=== PATIENT | female | born 1950 | race Caucasian/White ===

== ENCOUNTER → 2017-01-28 | Outpatient (CLI) | payer OTHER ==
[~2017-01-28] VITALS: Ht 170.2 cm; Wt 106.5 kg
[~2017-01-28] MED LIST: ANTI-DIARRHEAL2 M2 PO; ANTIVERT25 MG PO; ASPIRIN81 M2 PO; AVENTYL,PAMELOR10 M1 PO; Antivert PO; BACTRIM,SEPT1 TABLET PO; BONINE25 MG PO; CALTRATE 6001 TABLE1 PO; CARDIZEM CD360 MG PO; CELEBREX200 MG PO; CELECOXIB200 MG PO; COLACE100 MG PO; COREG3.125 M1 PO; COUMADIN,JANTOVE1 MG PO; CYMBALTA60 MG PO; Cardizem CD,Cartia X PO; Cymbalta PO; DAILY VALUE1 EACH PO; DIAZEPAM5 MG PO; DILTIAZEM 24HR360 M1 PO; DULCOLAX10 MG PR; DULOXETINE HCL60 MG PO; DURAGESIC25 MCG TD; ELIQUIS5 MG PO; ENDOCET 5-3251 EACH PO; FEOSOL325 MG PO; FLORASTOR250 MG PO; GLUCOPHAGE XR750 MG PO; GLUCOPHAGE500 MG PO; GLYNASE3 MG PO; HYDROCODON-ACE1 EAC7 PO; K-DUR10 MEQ PO; KLONOPIN0.5 M1 PO; LANTUS 3 M100 UNITS1 SC; LIDOCAINE700 MG TD; LIDODERM 5% P1 PATCH TD; LIDODERM 5% P1 PATCH TP; LISINOPRIL-HCT1 EAC3 PO; LOTRISONE15 GM TP; Lantus 3 ml Solostar SC; Lasix PO; MECLIZINE HCL25 MG PO; MELATIN3 MG PO; MELATONIN3 MG PO; MELOXICAM15 MG PO; METAXALONE800 MG PO; METFORMIN HCL1000 MG PO; METFORMIN HCL500 MG PO; MILK OF MAGN PO; Melatonin PO; NOVOLOG 10100 UNITS/ SC; OMEPRAZOLE20 MG PO; ONDANSETRON HCL4 MG PO; OXYCONTIN10 MG PO; PAIN & FEVER500 MG PO; PERCOCET 5/31 TABLET PO; PRAVACHOL20 MG PO; PRAVASTATIN SOD20 MG PO; PRILOSEC40 MG PO; PROAIR HFA8.5 GM IH; PROSOURCE LIQUI30 ML PO; ROXICODONE5 MG PO; SENOKOT S,PE1 TABLET PO; SKELAXIN800 MG PO; SPIRIVA1 INHALATI IH; ST. JOSEPH ASPI81 MG PO; Skelaxin PO; TRAMADOL HCL50 MG PO; Tylenol Regular Stre PO; VALIUM5 MG PO; VENTOLIN HFA18 GM IH; WARFARIN SODIU2.5 MG PO; ZESTRIL2.5 MG PO; ZOFRAN4 MG PO; Zestoretic,Prinzide PO; Zocor PO
[2017-01-28 09:14] LABS: HEMATOCRIT 32.9 % (36.0-46.0); MCH 26.3 PG (29.0-34.0); MCHC 30.1 G/DL (30.0-36.0); MCV 87.5 FL (83-99); MEAN PLAT.VOLUME 12.4 uM^3 (9.5-12.4); PLATELET COUNT 182 K/uL (156-360); RBC DIS.WIDTH-CV 16.1 % (11.8-14.6); RBC DIS.WIDTH-SD 50.6 % (39-53); RED BLOOD COUNT 3.76 M/uL (3.80-5.20); WHITE BLOOD COUNT 5.4 K/uL (4.1-10.2)
[2017-01-28 09:28] LABS: INTER. NORMALIZED RATIO 1.1; PROTHROMBIN TIME 11.9 SEC (10.2-12.9)
[2017-01-28 09:31] LABS: PTT 25.3 SEC (25-37)
[2017-01-28 09:52] LABS: POINT-OF-CARE METER ID UU13113694
== END | disposition home or self-care (01) ==
LOC: OPR 08:30 → EDSTATUS 09:00
PROVIDERS: Internal Medicine Pulmonary Disease
PROC: 0BBK3ZX Excision of Right Lung, Percutaneous Approach, Diagnostic (ICD-10-PCS; principal; 2017-01-28)
DX: C34.31 Malignant neoplasm of lower lobe, right bronchus or lung (principal); J44.9 Chronic obstructive pulmonary disease, unspecified; F17.200 Nicotine dependence, unspecified, uncomplicated; I48.91 Unspecified atrial fibrillation; K21.9 Gastro-esophageal reflux disease without esophagitis; Z79.84 Long term (current) use of oral hypoglycemic drugs; Z79.01 Long term (current) use of anticoagulants; Z82.49 Family history of ischemic heart disease and other diseases of the circulatory system; Z82.0 Family history of epilepsy and other diseases of the nervous system; Z83.3 Family history of diabetes mellitus; Z90.49 Acquired absence of other specified parts of digestive tract; Z90.710 Acquired absence of both cervix and uterus; Z96.659 Presence of unspecified artificial knee joint; Z88.2 Allergy status to sulfonamides; Z88.8 Allergy status to other drugs, medicaments and biological substances
CPT/HCPCS: 71010; 77012; 82948; 85027; 85610; 85730; 88305; 88341 TC; 88342 TC; J3010

== ENCOUNTER 2017-02-20 10:32 | Day surgery (SDC) | payer OTHER ==
[~2017-02-20] VITALS: Ht 177.8 cm; Wt 106.0 kg
[2017-02-20 11:08] LABS: EOSINOPHIL (%) 3.1 % (0-5); EOSINOPHIL COUNT 0.2 K/uL (0-0.3); HEMATOCRIT 33.9 % (36.0-46.0); IMMATURE GRANULOCYTE (%) 0.3 % (0.0-0.7); INSTRUMENT ABS NEUTROPHIL CT 3.8 K/uL; LYMPHOCYTE COUNT 1.9 K/uL (1.0-2.8); MCH 25.3 PG (29.0-34.0); MCHC 29.2 G/DL (30.0-36.0); MCV 86.7 FL (83-99); MEAN PLAT.VOLUME 12.7 uM^3 (9.5-12.4); MONOCYTE (%) 6.5 % (3-12); MONOCYTE COUNT 0.4 K/uL (0-0.8); NEUTROPHIL (%) 59.7 % (45-76); NEUTROPHIL COUNT 3.8 K/uL (1.8-6.4); RBC DIS.WIDTH-CV 15.9 % (11.8-14.6); RBC DIS.WIDTH-SD 50.1 % (39-53); RED BLOOD COUNT 3.91 M/uL (3.80-5.20); WHITE BLOOD COUNT 6.4 K/uL (4.1-10.2)
[2017-02-20 11:10] LABS: PLATELET COUNT 237 K/uL (156-360)
[2017-02-20 11:11] LABS: INTER. NORMALIZED RATIO 1.1; PROTHROMBIN TIME 12.2 SEC (10.2-12.9)
[2017-02-20 11:14] LABS: CHLORIDE 107 mEq/L (99-109); PTT 27.4 SEC (25-37); SODIUM 141 mEq/L (136-147)
[2017-02-20 11:16] LABS: GLUCOSE 232 mg/dL (70-99)
[2017-02-20 11:17] LABS: ANION GAP 10 MEQ/L (2-14)
[2017-02-20 11:18] LABS: TOTAL BILIRUBIN 0.3 mg/dL (0.0-1.0)
[2017-02-20 11:20] LABS: ALKALINE PHOSPHATASE 73 IU/L (3-129); GFR ESTIMATE (CALCULATED) > 59 mL/min/
[2017-02-20 11:21] LABS: UREA NITROGEN (BUN) 9 mg/dL (9-23)
[2017-02-20 11:29] VITALS: BP 128/69
[2017-02-20 14:36] LABS: POINT-OF-CARE METER ID UU13113675
[2017-02-20] MEDS ORDERED: COLACE100 MG PO (15:07)
[2017-02-20] MEDS ORDERED: HYDROCODON-ACE1 EAC7 PO (15:07)
[2017-02-20 15:45] VITALS: BP 150/69
[2017-02-20 16:51] VITALS: BP 144/64
== END 2017-02-20 17:00 | disposition home or self-care (01) ==
LOC: SDC 10:32
PROVIDERS: Thoracic Surgery (Cardiothoracic Vascular Surgery)
PROC: 07B74ZX Excision of Thorax Lymphatic, Percutaneous Endoscopic Approach, Diagnostic (ICD-10-PCS; principal; 2017-02-20)
DX: C34.90 Malignant neoplasm of unspecified part of unspecified bronchus or lung (principal); K21.9 Gastro-esophageal reflux disease without esophagitis; E66.9 Obesity, unspecified; Z68.36 Body mass index [BMI] 36.0-36.9, adult; J44.9 Chronic obstructive pulmonary disease, unspecified; I10 Essential (primary) hypertension; E11.9 Type 2 diabetes mellitus without complications; I48.91 Unspecified atrial fibrillation; F17.210 Nicotine dependence, cigarettes, uncomplicated; Z88.2 Allergy status to sulfonamides
CPT/HCPCS: 80053; 82948; 85025; 85610; 85730; 86850; 86900; 86901; 88305; J0330; J0690; J1100; J1170; J2250; J2405; J3010

== ENCOUNTER 2017-03-05 20:53 | Inpatient (IN) | payer OTHER ==
[~2017-03-05] VITALS: Ht 401.3 cm; Wt 108.8 kg
[~2017-03-05 20:53] MED LIST changes: +METFORMIN HCL1000 M3 PO; +PROBIOTIC1 EAC4 PO
[2017-03-06 06:20] VITALS: BP 156/69
[2017-03-06 06:25] LABS: EOSINOPHIL (%) 1.2 % (0-5); EOSINOPHIL COUNT 0.1 K/uL (0-0.3); HEMATOCRIT 33.6 % (36.0-46.0); IMMATURE GRANULOCYTE (%) 0.3 % (0.0-0.7); INSTRUMENT ABS NEUTROPHIL CT 4.9 K/uL; LYMPHOCYTE COUNT 1.2 K/uL (1.0-2.8); MCH 24.2 PG (29.0-34.0); MCHC 28.3 G/DL (30.0-36.0); MCV 85.7 FL (83-99); MEAN PLAT.VOLUME 12.6 uM^3 (9.5-12.4); MONOCYTE (%) 6.6 % (3-12); MONOCYTE COUNT 0.4 K/uL (0-0.8); NEUTROPHIL (%) 72.9 % (45-76); NEUTROPHIL COUNT 4.9 K/uL (1.8-6.4); PLATELET COUNT 227 K/uL (156-360); RBC DIS.WIDTH-CV 15.9 % (11.8-14.6); RBC DIS.WIDTH-SD 49.7 % (39-53); RED BLOOD COUNT 3.92 M/uL (3.80-5.20); WHITE BLOOD COUNT 6.7 K/uL (4.1-10.2)
[2017-03-06 06:31] LABS: INTER. NORMALIZED RATIO 1.2
[2017-03-06 06:55] LABS: ALKALINE PHOSPHATASE 65 IU/L (3-129); ANION GAP 13 MEQ/L (2-14); CHLORIDE 105 MEQ/L (99-109); GFR ESTIMATE (CALCULATED) > 59 mL/min/; GLUCOSE 211 mg/dL (70-99); POTASSIUM 3.1 MEQ/L (3.7-5.4); SAMPLE HEMOLYSIS CHECK 0; SAMPLE ICTERIC CHECK 0; SAMPLE LIPEMIA CHECK 0; SODIUM 142 MEQ/L (136-147); TOTAL BILIRUBIN 0.4 MG/DL (0.0-1.0); UREA NITROGEN (BUN) 11 mg/dL (9-23)
[2017-03-06 10:58] LABS: POINT-OF-CARE METER ID UU13113675
[2017-03-06 16:03] LABS: POINT-OF-CARE METER ID UU13113675
[2017-03-06 16:30] VITALS: BP 106/49
[2017-03-06 16:31] VITALS: BP 106/49
[2017-03-06 17:00] VITALS: BP 124/54
[2017-03-06 17:41] LABS: METH RESISTANT S AUREUS PCR NEGATIVE (NEGATIVE)
[2017-03-06 18:00] VITALS: BP 107/79
[2017-03-06 18:04] LABS: SPECIMEN PROCESSING CONTROL PASS
[2017-03-06 18:05] LABS: PROBE CHECK PASS
[2017-03-06 18:10] LABS: POINT-OF-CARE METER ID UU14208751
[2017-03-06 20:00] VITALS: BP 118/64
[2017-03-06 22:09] LABS: POINT-OF-CARE METER ID UU14314083
[2017-03-07] VITALS (16 sets, daily range): BP systolic 93–161; BP diastolic 50–87
[2017-03-07 07:16] LABS: HEMATOCRIT 29.4 % (36.0-46.0); MCH 25.9 PG (29.0-34.0); MCHC 29.3 G/DL (30.0-36.0); MCV 88.6 FL (83-99); MEAN PLAT.VOLUME 12.9 uM^3 (9.5-12.4); PLATELET COUNT 207 K/uL (156-360); RBC DIS.WIDTH-CV 16.1 % (11.8-14.6); RBC DIS.WIDTH-SD 52.2 % (39-53); RED BLOOD COUNT 3.32 M/uL (3.80-5.20); WHITE BLOOD COUNT 10.2 K/uL (4.1-10.2)
[2017-03-07 07:39] LABS: ANION GAP 8 MEQ/L (2-14); CHLORIDE 105 MEQ/L (99-109); GFR ESTIMATE (CALCULATED) > 59 mL/min/; GLUCOSE 163 mg/dL (70-99); SAMPLE HEMOLYSIS CHECK 0; SAMPLE ICTERIC CHECK 0; SAMPLE LIPEMIA CHECK 0; SODIUM 139 MEQ/L (136-147); UREA NITROGEN (BUN) 13 mg/dL (9-23)
[2017-03-07 07:42] LABS: POTASSIUM 3.8 MEQ/L (3.7-5.4)
[2017-03-07 08:55] LABS: POINT-OF-CARE METER ID UU14162636
[2017-03-07 12:05] LABS: POINT-OF-CARE METER ID UU14174217
[2017-03-07 17:33] LABS: POINT-OF-CARE METER ID UU14162636
[2017-03-07 22:45] LABS: POINT-OF-CARE METER ID UU14162636
[2017-03-08] VITALS (14 sets, daily range): BP systolic 88–164; BP diastolic 33–77
[2017-03-08 05:18] LABS: MCH 24.9 PG (29.0-34.0); MCHC 28.5 G/DL (30.0-36.0); MCV 87.5 FL (83-99); MEAN PLAT.VOLUME 12.7 uM^3 (9.5-12.4); PLATELET COUNT 185 K/uL (156-360); RBC DIS.WIDTH-CV 16.2 % (11.8-14.6); RBC DIS.WIDTH-SD 51.6 % (39-53); RED BLOOD COUNT 2.97 M/uL (3.80-5.20); WHITE BLOOD COUNT 8.3 K/uL (4.1-10.2)
[2017-03-08 05:45] LABS: ANION GAP 7 MEQ/L (2-14); CHLORIDE 105 MEQ/L (99-109); GFR ESTIMATE (CALCULATED) > 59 mL/min/; GLUCOSE 133 mg/dL (70-99); POTASSIUM 3.4 MEQ/L (3.7-5.4); SAMPLE HEMOLYSIS CHECK 0; SAMPLE ICTERIC CHECK 0; SAMPLE LIPEMIA CHECK 0; SODIUM 140 MEQ/L (136-147); UREA NITROGEN (BUN) 14 mg/dL (9-23)
[2017-03-08 12:30] LABS: POINT-OF-CARE METER ID UU13113803
[2017-03-08 16:05] LABS: POINT-OF-CARE METER ID UU13113803
[2017-03-08 22:26] LABS: POINT-OF-CARE METER ID UU14314082; POINT-OF-CARE USER ID RADDRS44
[2017-03-09] VITALS (19 sets, daily range): BP systolic 113–178; BP diastolic 62–105
[2017-03-09 05:31] LABS: HEMATOCRIT 28.2 % (36.0-46.0); MCH 24.7 PG (29.0-34.0); MCV 88.1 FL (83-99); MEAN PLAT.VOLUME 12.8 uM^3 (9.5-12.4); PLATELET COUNT 207 K/uL (156-360); RBC DIS.WIDTH-SD 51.6 % (39-53); WHITE BLOOD COUNT 7.8 K/uL (4.1-10.2)
[2017-03-09 06:00] LABS: ANION GAP 7 MEQ/L (2-14); CHLORIDE 104 MEQ/L (99-109); GFR ESTIMATE (CALCULATED) > 59 mL/min/; GLUCOSE 138 mg/dL (70-99); MAGNESIUM 1.5 mg/dl (1.3-2.7); POTASSIUM 3.7 MEQ/L (3.7-5.4); SAMPLE HEMOLYSIS CHECK 0; SAMPLE ICTERIC CHECK 0; SAMPLE LIPEMIA CHECK 0; SODIUM 139 MEQ/L (136-147); UREA NITROGEN (BUN) 12 mg/dL (9-23)
[2017-03-09 08:28] LABS: POINT-OF-CARE METER ID UU14174217
[2017-03-09 12:42] LABS: POINT-OF-CARE METER ID UU14174217
[2017-03-09 17:44] LABS: POINT-OF-CARE METER ID UU14208751
[2017-03-09 23:04] LABS: POINT-OF-CARE METER ID UU14174217; POINT-OF-CARE USER ID RADDRS44
[2017-03-10] VITALS (11 sets, daily range): BP systolic 129–178; BP diastolic 55–80
[2017-03-10 05:04] LABS: HEMATOCRIT 26.3 % (36.0-46.0); MCH 25.9 PG (29.0-34.0); MCHC 29.3 G/DL (30.0-36.0); MCV 88.6 FL (83-99); MEAN PLAT.VOLUME 12.8 uM^3 (9.5-12.4); PLATELET COUNT 188 K/uL (156-360); RBC DIS.WIDTH-CV 16.3 % (11.8-14.6); RBC DIS.WIDTH-SD 51.8 % (39-53); RED BLOOD COUNT 2.97 M/uL (3.80-5.20); WHITE BLOOD COUNT 6.5 K/uL (4.1-10.2)
[2017-03-10 05:37] LABS: ANION GAP 6 MEQ/L (2-14); CHLORIDE 106 MEQ/L (99-109); GFR ESTIMATE (CALCULATED) > 59 mL/min/; GLUCOSE 125 mg/dL (70-99); MAGNESIUM 1.3 mg/dl (1.3-2.7); POTASSIUM 4.4 MEQ/L (3.7-5.4); SAMPLE HEMOLYSIS CHECK 0; SAMPLE ICTERIC CHECK 0; SAMPLE LIPEMIA CHECK 0; SODIUM 140 MEQ/L (136-147); UREA NITROGEN (BUN) 12 mg/dL (9-23)
[2017-03-10 08:55] LABS: POINT-OF-CARE METER ID UU14314082
[2017-03-10 11:36] LABS: POINT-OF-CARE METER ID UU14314082
[2017-03-10 16:44] LABS: POINT-OF-CARE METER ID UU14314082
[2017-03-10 21:54] LABS: POINT-OF-CARE METER ID UU14314082
[2017-03-11] VITALS (8 sets, daily range): BP systolic 136–200; BP diastolic 59–99
[2017-03-11 08:31] LABS: POINT-OF-CARE METER ID UU13113803
[2017-03-11 11:12] LABS: ADD MIUA? YES; BILIRUBIN NEGATIVE; BLOOD NEGATIVE; COLOR YELLOW ((YELLOW)); GLUCOSE (STRIP) NEGATIVE; KETONES 5; LEUKOCYTES TRACE; NITRITE NEGATIVE; PROTEIN (STRIP) NEGATIVE; UROBILINOGEN 0.2 MG/DL (0.2-1.0)
[2017-03-11 11:48] LABS: BACTERIA RARE /HPF; EPITHELIAL CELLS RARE /HPF; MUCUS TRACE /LPF; RED BLOOD CELLS 0-5 /HPF (0-5)
[2017-03-11 11:51] LABS: POINT-OF-CARE METER ID UU13113803
[2017-03-11 16:55] LABS: POINT-OF-CARE METER ID UU13113803
[2017-03-11 22:04] LABS: POINT-OF-CARE METER ID UU13113803
[2017-03-12] VITALS: BP 154/58
[2017-03-12 04:00] VITALS: BP 175/67
[2017-03-12 08:00] VITALS: BP 174/78
[2017-03-12 09:34] LABS: POINT-OF-CARE METER ID UU14314082
[2017-03-12 12:00] VITALS: BP 157/75
[2017-03-12 12:22] LABS: POINT-OF-CARE METER ID UU13113803
[2017-03-12 16:00] VITALS: BP 171/83
[2017-03-12 16:53] LABS: POINT-OF-CARE METER ID UU13113803
[2017-03-12] MEDS ORDERED: FERROUS SULFAT325 MG PO (18:40)
[2017-03-12] MEDS ORDERED: THERAGRAN1 TABLET PO (18:40)
[2017-03-12] MEDS ORDERED: FOLIC ACID1 MG PO (18:40)
[2017-03-12] MEDS ORDERED: DIGOXIN125 MCG PO (18:40)
[2017-03-12] MEDS ORDERED: ADVAIR HFA120 INHALA IH (18:40)
[2017-03-12] MEDS ORDERED: CIPROFLOXACIN500 M1 PO (18:40)
[2017-03-12 20:00] VITALS: BP 159/83
[2017-03-12 21:48] LABS: POINT-OF-CARE METER ID UU14314082
[2017-03-13] VITALS: BP 145/99
[2017-03-13 04:00] VITALS: BP 154/68
[2017-03-13 06:06] LABS: HEMATOCRIT 29.7 % (36.0-46.0); MCH 24.9 PG (29.0-34.0); MCHC 27.9 G/DL (30.0-36.0); MCV 88.9 FL (83-99); MEAN PLAT.VOLUME 12.5 uM^3 (9.5-12.4); PLATELET COUNT 225 K/uL (156-360); RBC DIS.WIDTH-CV 17.8 % (11.8-14.6); RBC DIS.WIDTH-SD 54.8 % (39-53); RED BLOOD COUNT 3.34 M/uL (3.80-5.20); WHITE BLOOD COUNT 7.1 K/uL (4.1-10.2)
[2017-03-13 06:23] LABS: ANION GAP 9 MEQ/L (2-14); CHLORIDE 106 MEQ/L (99-109); GFR ESTIMATE (CALCULATED) > 59 mL/min/; GLUCOSE 97 mg/dL (70-99); POTASSIUM 3.8 MEQ/L (3.7-5.4); SAMPLE HEMOLYSIS CHECK 0; SAMPLE ICTERIC CHECK 0; SAMPLE LIPEMIA CHECK 0; SODIUM 143 MEQ/L (136-147); UREA NITROGEN (BUN) 6 mg/dL (9-23)
[2017-03-13 08:00] VITALS: BP 164/73
[2017-03-13 08:17] LABS: POINT-OF-CARE METER ID UU14314082
[2017-03-13 12:00] VITALS: BP 147/59
[2017-03-13 12:47] LABS: POINT-OF-CARE METER ID UU14314082
[2017-03-13 16:00] VITALS: BP 152/61
[2017-03-13 17:43] LABS: POINT-OF-CARE METER ID UU14314082
== END 2017-03-13 18:50 | disposition home or self-care (01) | DRG 164 ==
LOC: ENRESERV 20:53 → 2SOUTH 03-06 05:22 → 4WEST 03-06 05:22 → ENRESERV 03-06 08:15 → CANRESERV 03-06 08:15 → 2SOUTH 03-06 09:11 → SDC 03-06 15:01 → EDSTATUS 03-06 15:02 → 2SOUTH 03-06 15:02 → ENRESERV 03-06 15:40 → 4WEST 03-06 16:04
PROVIDERS: Surgery; Thoracic Surgery (Cardiothoracic Vascular Surgery)
DX: C34.31 Malignant neoplasm of lower lobe, right bronchus or lung (principal); R91.1 Solitary pulmonary nodule; F17.210 Nicotine dependence, cigarettes, uncomplicated; D62 Acute posthemorrhagic anemia; E11.9 Type 2 diabetes mellitus without complications; M19.90 Unspecified osteoarthritis, unspecified site; I10 Essential (primary) hypertension; E87.6 Hypokalemia; I25.10 Atherosclerotic heart disease of native coronary artery without angina pectoris; K55.1 Chronic vascular disorders of intestine; I48.0 Paroxysmal atrial fibrillation; Z98.84 Bariatric surgery status; Z88.2 Allergy status to sulfonamides; K21.9 Gastro-esophageal reflux disease without esophagitis; N39.0 Urinary tract infection, site not specified; J44.9 Chronic obstructive pulmonary disease, unspecified
CPT/HCPCS: 71010; 71020; 80048; 80053; 81003; 82948; 83735; 84100; 85025; 85027; 85610; 86850; 86900; 86901; 86920; 87077; 87086; 87186; 87641; 88300; 88309; 94010; 94640; 94640 76; 94760; 94799; 97530 GO; 97530 GP; 99202; J0131; J0330; J0690; J1100; J1160; J1170; J1200; J1644; J1650; J1815; J1885; J2250; J2370; J2405; J2710; J3010; J3420; J7050; J7120; S0020

== ENCOUNTER 2017-03-21 12:08 | Inpatient (IN) | payer OTHER ==
[~2017-03-21] VITALS: Ht 177.8 cm; Wt 103.0 kg
[~2017-03-21 12:08] MED LIST changes: +ADVAIR HFA120 INHALA IH; +CIPROFLOXACIN500 M1 PO; +DIGOXIN125 MCG PO; +FERROUS SULFAT325 MG PO; +FOLIC ACID1 MG PO; +THERAGRAN1 TABLET PO
[2017-03-21 12:51] LABS: HEMATOCRIT 29.6 % (36.0-46.0); MCH 25.8 PG (29.0-34.0); MCHC 29.4 G/DL (30.0-36.0); MCV 87.8 FL (83-99); PLATELET COUNT 254 K/uL (156-360); RBC DIS.WIDTH-CV 18.2 % (11.8-14.6); RBC DIS.WIDTH-SD 57.3 % (39-53); RED BLOOD COUNT 3.37 M/uL (3.80-5.20); WHITE BLOOD COUNT 14.4 K/uL (4.1-10.2)
[2017-03-21 12:56] LABS: PTT 30.1 SEC (25-37)
[2017-03-21 13:00] LABS: CHLORIDE 103 mEq/L (99-109); POTASSIUM 3.3 mEq/L (3.7-5.4); SODIUM 141 mEq/L (136-147)
[2017-03-21 13:02] LABS: GLUCOSE 252 mg/dL (70-99)
[2017-03-21 13:03] LABS: ANION GAP 17 MEQ/L (2-14)
[2017-03-21 13:04] LABS: PROTHROMBIN TIME 22.9 SEC (10.2-12.9)
[2017-03-21 13:06] LABS: GFR ESTIMATE (CALCULATED) > 59 mL/min/; UREA NITROGEN (BUN) 15 mg/dL (9-23)
[2017-03-21 13:09] LABS: TROP-I INTERPRETATION NEGATIVE; TROPONIN-I 0.01 ng/mL (0.0-0.30)
[2017-03-21 14:04] LABS: ADD MIUA? YES; BILIRUBIN NEGATIVE; BLOOD NEGATIVE; COLOR YELLOW ((YELLOW)); GLUCOSE (STRIP) 50; KETONES 5; LEUKOCYTES NEGATIVE; NITRITE POSITIVE; PROTEIN (STRIP) 30; SPECIFIC GRAVITY 1.027 (1.000-1.030); UROBILINOGEN 0.2 MG/DL (0.2-1.0)
[2017-03-21 14:20] LABS: EPITHELIAL CELLS 1+ /HPF
[2017-03-21 14:21] LABS: BACTERIA 2+ /HPF; CASTS NONE SEEN /LPF; CRYSTALS NONE SEEN; MUCUS NONE SEEN /LPF; RED BLOOD CELLS NONE SEEN /HPF (0-5); UCUL ADDED? YES; WHITE BLOOD CELLS 0-5 /HPF (0-5)
[2017-03-21 15:54] LABS: MAGNESIUM 1.2 mg/dL (1.3-2.7)
[2017-03-21] MEDS ORDERED: FEOSOL325 MG PO (16:17)
[2017-03-21] MEDS ORDERED: CARVEDILOL3.125 MG PO (16:19)
[2017-03-21] MEDS ORDERED: COLACE100 MG PO (16:24)
[2017-03-21] MEDS ORDERED: FOLIC ACID1 MG PO (16:27)
[2017-03-21] MEDS ORDERED: THERAGRAN1 TABLET PO (16:28)
[2017-03-21 16:46] VITALS: BP 154/71
[2017-03-21 17:36] LABS: POINT-OF-CARE METER ID UU13113698
[2017-03-21 19:06] LABS: TROP-I INTERPRETATION NEGATIVE; TROPONIN-I 0.02 ng/mL (0.0-0.30)
[2017-03-21 19:20] VITALS: BP 112/58
[2017-03-21 20:52] LABS: POINT-OF-CARE METER ID UU13113698
[2017-03-21 23:45] VITALS: BP 138/49
[2017-03-22] VITALS (14 sets, daily range): BP systolic 134–193; BP diastolic 65–80
[2017-03-22 01:08] LABS: TROP-I INTERPRETATION NEGATIVE; TROPONIN-I 0.01 ng/mL (0.0-0.30)
[2017-03-22 04:43] LABS: HEMATOCRIT 26.5 % (36.0-46.0); MCH 25.3 PG (29.0-34.0); MCHC 28.7 G/DL (30.0-36.0); MCV 88.3 FL (83-99); MEAN PLAT.VOLUME 12.5 uM^3 (9.5-12.4); PLATELET COUNT 226 K/uL (156-360); RBC DIS.WIDTH-CV 18.4 % (11.8-14.6); RBC DIS.WIDTH-SD 57.6 % (39-53)
[2017-03-22 04:54] LABS: CHLORIDE 105 mEq/L (99-109); POTASSIUM 3.6 mEq/L (3.7-5.4); SODIUM 141 mEq/L (136-147)
[2017-03-22 04:57] LABS: GLUCOSE 180 mg/dL (70-99)
[2017-03-22 04:58] LABS: ANION GAP 11 MEQ/L (2-14)
[2017-03-22 04:59] LABS: TOTAL BILIRUBIN 0.5 mg/dL (0.0-1.0)
[2017-03-22 05:00] LABS: ALKALINE PHOSPHATASE 70 IU/L (3-129); GFR ESTIMATE (CALCULATED) > 59 mL/min/
[2017-03-22 05:02] LABS: UREA NITROGEN (BUN) 10 mg/dL (9-23)
[2017-03-22 07:47] LABS: POINT-OF-CARE METER ID UU13113781
[2017-03-22 11:18] LABS: POINT-OF-CARE METER ID UU13113781
[2017-03-22 16:35] LABS: POINT-OF-CARE METER ID UU13113781
[2017-03-22 21:11] LABS: POINT-OF-CARE METER ID UU14314088
[2017-03-23] VITALS (8 sets, daily range): BP systolic 120–152; BP diastolic 55–72
[2017-03-23 07:59] LABS: POINT-OF-CARE METER ID UU14174216
[2017-03-23 09:04] LABS: ANION GAP 8 MEQ/L (2-14); CHLORIDE 101 MEQ/L (99-109); GFR ESTIMATE (CALCULATED) > 59 mL/min/; GLUCOSE 239 mg/dL (70-99); POTASSIUM 3.7 MEQ/L (3.7-5.4); SAMPLE HEMOLYSIS CHECK 0; SAMPLE ICTERIC CHECK 0; SAMPLE LIPEMIA CHECK 0; SODIUM 136 MEQ/L (136-147); UREA NITROGEN (BUN) 8 mg/dL (9-23)
[2017-03-23 09:16] LABS: EOSINOPHIL COUNT 0.4 K/uL (0-0.3); HEMATOCRIT 33.9 % (36.0-46.0); IMMATURE GRANULOCYTE (%) 0.5 % (0.0-0.7); IMMATURE GRANULOCYTE COUNT 0.1 K/uL; LYMPHOCYTE COUNT 1.6 K/uL (1.0-2.8); MCH 25.5 PG (29.0-34.0); MCHC 29.5 G/DL (30.0-36.0); MCV 86.5 FL (83-99); MEAN PLAT.VOLUME 11.8 uM^3 (9.5-12.4); MONOCYTE (%) 7.6 % (3-12); MONOCYTE COUNT 0.8 K/uL (0-0.8); NEUTROPHIL (%) 73.2 % (45-76); PLATELET COUNT 262 K/uL (156-360); RBC DIS.WIDTH-CV 19.5 % (11.8-14.6); RBC DIS.WIDTH-SD 59.5 % (39-53); WHITE BLOOD COUNT 10.9 K/uL (4.1-10.2)
[2017-03-23 10:14] LABS: RED BLOOD COUNT 3.92 M/uL (3.80-5.20)
[2017-03-23 11:46] LABS: POINT-OF-CARE METER ID UU14174216
[2017-03-23 16:49] LABS: POINT-OF-CARE METER ID UU14174216
[2017-03-23 21:20] LABS: POINT-OF-CARE METER ID UU13113781
[2017-03-24 03:30] VITALS: BP 122/60
[2017-03-24 07:35] VITALS: BP 172/69
[2017-03-24 07:42] LABS: POINT-OF-CARE METER ID UU14174216
[2017-03-24 11:42] LABS: POINT-OF-CARE METER ID UU14314088
[2017-03-24 12:15] VITALS: BP 122/60
[2017-03-24] MEDS ORDERED: CEFTIN500 MG PO (13:47)
[2017-03-24] MEDS ORDERED: CARVEDILOL12.5 MG PO (13:51)
== END 2017-03-24 15:03 | disposition home health service (06) | DRG 309 ==
LOC: EME 12:08 → 4EAST 14:51 → EDOF 14:51 → ENRESERV 14:52 → 4EAST 16:39
PROVIDERS: Emergency Medicine; Internal Medicine
PROC: 30233N1 Transfusion of Nonautologous Red Blood Cells into Peripheral Vein, Percutaneous Approach (ICD-10-PCS; principal; 2017-03-22)
DX: I48.0 Paroxysmal atrial fibrillation (principal); N39.0 Urinary tract infection, site not specified; C34.31 Malignant neoplasm of lower lobe, right bronchus or lung; D64.9 Anemia, unspecified; E11.9 Type 2 diabetes mellitus without complications; E78.5 Hyperlipidemia, unspecified; K21.9 Gastro-esophageal reflux disease without esophagitis; E86.0 Dehydration; I10 Essential (primary) hypertension; B96.20 Unspecified Escherichia coli [E. coli] as the cause of diseases classified elsewhere; J44.9 Chronic obstructive pulmonary disease, unspecified; Z79.01 Long term (current) use of anticoagulants; Z82.49 Family history of ischemic heart disease and other diseases of the circulatory system; Z83.3 Family history of diabetes mellitus; Z87.891 Personal history of nicotine dependence; Z90.710 Acquired absence of both cervix and uterus; Z98.84 Bariatric surgery status; Z79.84 Long term (current) use of oral hypoglycemic drugs
CPT/HCPCS: 71010; 80048; 80053; 81003; 82272; 82948; 83735; 84484; 85025; 85027; 85610; 85730; 86850; 86900; 86901; 86920; 87040; 87077; 87086; 87186; 93005; 93306; 94640; 94640 76; 94760; 99202; 99281; 99285; J0696; J1815; J1940; J2405; J7030; J7050; P9016

== ENCOUNTER 2017-06-23 15:32 | Inpatient (IN) | payer OTHER ==
[~2017-06-23] VITALS: Ht 177.8 cm; Wt 81.6 kg
[~2017-06-23 15:32] MED LIST changes: +CALCIUM500 M4 PO; +CARVEDILOL12.5 MG PO; +CARVEDILOL3.125 MG PO; +CEFTIN500 MG PO; +CILOSTAZOL100 MG PO; +COMPAZINE10 MG PO; +TAZTIA XT360 MG PO
[2017-06-23 15:59] LABS: HEMATOCRIT 32.7 % (36.0-46.0); HEMOGLOBIN 10.6 G/DL (11.9-15.5); MCH 31.5 PG (29.0-34.0); MCHC 32.4 G/DL (30.0-36.0); MCV 97.3 FL (83-99); NRBC (%) 0.7 /100 WBC (0-0); RBC DIS.WIDTH-CV 16.9 % (11.8-14.6); RBC DIS.WIDTH-SD 47.3 % (39-53); RED BLOOD COUNT 3.36 M/uL (3.80-5.20)
[2017-06-23 16:05] LABS: PLATELET COUNT 345 K/uL (156-360)
[2017-06-23 16:09] LABS: CHLORIDE 105 mEq/L (99-109); POTASSIUM 2.9 mEq/L (3.7-5.4); SODIUM 141 mEq/L (136-147)
[2017-06-23 16:10] LABS: GLUCOSE 186 mg/dL (70-99)
[2017-06-23 16:14] LABS: CREATININE 0.7 mg/dL (0.6-1.3); GFR ESTIMATE (CALCULATED) > 59 mL/min/
[2017-06-23 16:15] LABS: UREA NITROGEN (BUN) 9 mg/dL (9-23)
[2017-06-23 16:22] LABS: TROP-I INTERPRETATION NEGATIVE; TROPONIN-I 0.04 ng/mL (0.0-0.30)
[2017-06-23 16:41] LABS: DIGOXIN < 0.3 ng/mL (0.8-2.0)
[2017-06-23] MEDS ORDERED: MELATONIN3 MG PO (20:01)
[2017-06-23] MEDS ORDERED: LOMOTIL TABLET1 EACH PO (20:01)
[2017-06-23] MEDS ORDERED: LIDOCARE1 EACH TP (20:03)
[2017-06-23] MEDS ORDERED: POTASSIUM CHLO20 ME1 PO (20:05)
[2017-06-23] MEDS ORDERED: FLEET MINERAL133 ML PR (20:07)
[2017-06-23] MEDS ORDERED: GLUCOPHAGE500 MG PO (20:08)
[2017-06-23] MEDS ORDERED: LANOXIN125 MCG PO (20:10)
[2017-06-23] MEDS ORDERED: LANOXIN250 MCG PO (20:11)
[2017-06-23] MEDS ORDERED: ADVAIR HFA120 INHALA IH (20:11)
[2017-06-23] MEDS ORDERED: COREG3.125 M1 PO (20:12)
[2017-06-23] MEDS ORDERED: DULCOLAX10 MG PR (20:14)
[2017-06-23] MEDS ORDERED: MILK OF MAGN PO (20:14)
[2017-06-23 22:13] LABS: ALBUMIN 2.9 g/dL (3.2-4.8)
[2017-06-23 22:16] LABS: TOTAL PROTEIN 5.1 g/dL (6.4-8.3)
[2017-06-23 22:18] LABS: TOTAL BILIRUBIN 0.2 mg/dL (0.0-1.0)
[2017-06-23 22:19] LABS: ALKALINE PHOSPHATASE 84 IU/L (3-129)
[2017-06-23 22:22] LABS: ALT (GPT) 16 IU/L (3-49); AST (GOT) 21 IU/L (2-34); DIRECT BILIRUBIN 0.1 mg/dL (0.0-0.3)
[2017-06-23 22:25] LABS: TROP-I INTERPRETATION NEGATIVE; TROPONIN-I 0.04 ng/mL (0.0-0.30)
[2017-06-24 04:54] LABS: APPEARANCE CLEAR ((CLEAR)); BILIRUBIN NEGATIVE; BLOOD NEGATIVE; COLOR YELLOW ((YELLOW)); GLUCOSE (STRIP) NEGATIVE; KETONES NEGATIVE; LEUKOCYTES MODERATE; NITRITE POSITIVE; PROTEIN (STRIP) 30; SPECIFIC GRAVITY 1.013 (1.000-1.030); UROBILINOGEN 0.2 MG/DL (0.2-1.0)
[2017-06-24 05:10] LABS: TROP-I INTERPRETATION NEGATIVE; TROPONIN-I 0.04 ng/mL (0.0-0.30)
[2017-06-24 05:31] LABS: BACTERIA RARE /HPF; EPITHELIAL CELLS 1+ /HPF; MUCUS TRACE /LPF; WHITE BLOOD CELLS 0-5 /HPF (0-5)
[2017-06-24 07:04] LABS: HEMATOCRIT 28.7 % (36.0-46.0); HEMOGLOBIN 9.1 G/DL (11.9-15.5); MCH 31.2 PG (29.0-34.0); MCHC 31.7 G/DL (30.0-36.0); MCV 98.3 FL (83-99); NRBC (%) 0.2 /100 WBC (0-0); PLATELET COUNT 286 K/uL (156-360); RBC DIS.WIDTH-CV 17.6 % (11.8-14.6); RBC DIS.WIDTH-SD 49.5 % (39-53); RED BLOOD COUNT 2.92 M/uL (3.80-5.20); WHITE BLOOD COUNT 8.3 K/uL (4.1-10.2)
[2017-06-24 07:12] LABS: CHLORIDE 110 mEq/L (99-109); POTASSIUM 3.7 mEq/L (3.7-5.4); SODIUM 144 mEq/L (136-147)
[2017-06-24 07:16] LABS: GLUCOSE 104 mg/dL (70-99)
[2017-06-24 07:18] LABS: CREATININE 0.6 mg/dL (0.6-1.3); GFR ESTIMATE (CALCULATED) > 59 mL/min/
[2017-06-24 07:19] LABS: UREA NITROGEN (BUN) 6 mg/dL (9-23)
[2017-06-24 15:50] VITALS: BP 135/60
[2017-06-24 23:36] VITALS: BP 126/58
[2017-06-25 03:34] VITALS: BP 128/63
[2017-06-25 06:03] LABS: HEMATOCRIT 29.2 % (36.0-46.0); MCH 30.8 PG (29.0-34.0); MCHC 30.8 G/DL (30.0-36.0); PLATELET COUNT 321 K/uL (156-360); RBC DIS.WIDTH-CV 17.6 % (11.8-14.6); RBC DIS.WIDTH-SD 54.5 % (39-53); RED BLOOD COUNT 2.92 M/uL (3.80-5.20); WHITE BLOOD COUNT 7.1 K/uL (4.1-10.2)
[2017-06-25 06:44] LABS: CHLORIDE 107 MEQ/L (99-109); CREATININE 0.5 MG/DL (0.6-1.3); GFR ESTIMATE (CALCULATED) > 59 mL/min/; GLUCOSE 106 mg/dL (70-99); SODIUM 141 MEQ/L (136-147); UREA NITROGEN (BUN) 8 mg/dL (9-23)
[2017-06-25 06:55] VITALS: BP 131/58
[2017-06-25 12:01] VITALS: BP 121/64
[2017-06-25 16:12] VITALS: BP 117/69
[2017-06-25 19:30] VITALS: BP 133/63
[2017-06-25 22:17] VITALS: BP 132/60
[2017-06-26 03:07] VITALS: BP 137/65
[2017-06-26 05:40] LABS: HEMATOCRIT 29.6 % (36.0-46.0); HEMOGLOBIN 9.1 G/DL (11.9-15.5); MCH 31.2 PG (29.0-34.0); MCHC 30.7 G/DL (30.0-36.0); MCV 101.4 FL (83-99); PLATELET COUNT 370 K/uL (156-360); RBC DIS.WIDTH-CV 18.1 % (11.8-14.6); RBC DIS.WIDTH-SD 60.7 % (39-53); RED BLOOD COUNT 2.92 M/uL (3.80-5.20); WHITE BLOOD COUNT 6.9 K/uL (4.1-10.2)
[2017-06-26 08:50] VITALS: BP 159/83
[2017-06-26 11:38] VITALS: BP 154/69
[2017-06-26 16:24] VITALS: BP 134/64
[2017-06-26 20:10] VITALS: BP 127/62
[2017-06-26 22:35] VITALS: BP 135/85
[2017-06-27 04:10] VITALS: BP 120/72
[2017-06-27 08:20] VITALS: BP 128/60
[2017-06-27] MEDS ORDERED: CARDIZEM CD,CA240 MG PO (10:27)
[2017-06-27] MEDS ORDERED: CARVEDILOL6.25 MG PO (10:27)
== END 2017-06-27 13:15 | disposition home health service (06) | DRG 309 ==
LOC: EME 15:32 → 4EAST 21:25 → EDOF 21:25 → ENRESERV 21:34 → EDOF 06-24 01:22 → ENRESERV 06-24 08:43 → 4EAST 06-24 15:52
PROVIDERS: Hospitalist
DX: I48.0 Paroxysmal atrial fibrillation (principal); C34.31 Malignant neoplasm of lower lobe, right bronchus or lung; E83.51 Hypocalcemia; E87.6 Hypokalemia; E11.9 Type 2 diabetes mellitus without complications; E78.00 Pure hypercholesterolemia, unspecified; E78.5 Hyperlipidemia, unspecified; I10 Essential (primary) hypertension; I47.1 Supraventricular tachycardia; K21.9 Gastro-esophageal reflux disease without esophagitis; D50.9 Iron deficiency anemia, unspecified; G43.909 Migraine, unspecified, not intractable, without status migrainosus; R42 Dizziness and giddiness; J44.9 Chronic obstructive pulmonary disease, unspecified; E66.3 Overweight; Z68.24 Body mass index [BMI] 24.0-24.9, adult; Z79.01 Long term (current) use of anticoagulants; Z88.2 Allergy status to sulfonamides; Z86.73 Personal history of transient ischemic attack (TIA), and cerebral infarction without residual deficits; Z87.891 Personal history of nicotine dependence; Z90.2 Acquired absence of lung [part of]; Z98.84 Bariatric surgery status; Z86.718 Personal history of other venous thrombosis and embolism
CPT/HCPCS: 70450; 71045; 80048; 80076; 80162; 81003; 82948; 83735; 84132; 84484; 85027; 93005; 94640; 94640 76; 99202; 99281; 99285; J1160; J1815; J3475; J7040; J7050